=== PATIENT | female | born 1930 | race Caucasian/White ===

== ENCOUNTER 2022-01-15 02:11 | Emergency (ER) | payer SELFPAY ==
--- NOTE | 2022-01-15 03:14 | EDPHYS ---
Physician Documentation [facility] Name: Merissa Corado Age: 89 yrs Sex: Female : 1930 Arrival Date: 01/15/2022 Time: 02:13 Bed 6 Private MD: ED Physician Neto Torres HPI: 01/15 02:39 This 89 yrs old Female presents to ER via EMS with complaints of head injury. rn 02:39 The patient or guardian reports injury, swelling. The complaints affect the right side rn of the back of head. Context of injury: The problem was sustained at home, resulted from a fall. Onset: The symptoms/episode began/occurred just prior to arrival. Associated signs and symptoms: Loss of consciousness: This patient did not experience any loss of consciousness. Pertinent positives: headache, Pertinent negatives: neck pain, seizure, shortness of breath, vomiting, weakness in extremities. Severity of symptoms: At their worst the symptoms were moderate, in the emergency department the symptoms are unchanged. The patient has not experienced similar symptoms in the past. The patient has not recently seen a physician. EMS reports fall from standing, no LOC, at baseline mentally. + head injury. No other injury. No vomiting. No extremity injury. . Historical: - Home Meds: 02:18 aspirin 81 mg Delayed Release oral cap 2 caps once daily [Active]; hydrochlorothiazide vc1 12.5 mg Oral cap 1 cap once daily [Active]; Klor-Con M20 20 mEq Oral TbTQ 1 tab once daily [Active]; levothyroxine 50 mcg cap 1 cap every am [Active]; meloxicam 7.5 mg oral tab 1 tab once daily [Active]; simvastatin 40 mg Oral tab 1 tab once daily [Active]; trazodone 50 mg Oral tab 1 tab at bedtime [Active]; - Family history:: not pertinent. - Hospitalizations: : No recent hospitalization is reported. ROS: 02:39 Constitutional: Negative for fever, chills, and weight loss, Eyes: Negative for injury, rn pain, redness, and discharge, Neck: Negative for injury, pain, and swelling, Cardiovascular: Negative for chest pain, palpitations, and edema, Respiratory: Negative for shortness of breath, cough, wheezing, and pleuritic chest pain, Abdomen/GI: Negative for abdominal pain, nausea, vomiting, diarrhea, and constipation, Back: Negative for injury and pain, MS/Extremity: Negative for injury and deformity, Skin: + contusion and possible laceration to back of head Neuro: Negative for numbness, tingling, and seizure. Exam: 02:39 Constitutional: This is a well developed, well nourished patient who is awake, alert, rn and in no acute distress. Legs crossed, sitting up in bed giving thumbs up. Head/Face: Normocephalic, + dry blood on scalp and in hair, + right posterior scalp contusion and hematoma, no active bleeding, stellate superficial laceration to right posterior parietal scalp Eyes: Periorbital areas with no swelling, redness, or edema. Neck: Trachea midline, no vertebral point tenderness. No Meningismus. Cardiovascular: Regular rate and rhythm . No pulse deficits. Respiratory: No increased work of breathing, no retractions or nasal flaring. Abdomen/GI: soft, non-tender Skin: Warm, dry MS/ Extremity: Pulses equal, no cyanosis. Neurovascular intact. Full, normal range of motion. Equal circumference. Neuro: Awake and alert, GCS 15, moves all 4 extremities without difficulty or pain Vital Signs: 02:16 BP 170 / 110; Pulse 80; Resp 18; Temp 96.6(A); Pulse Ox 94% on R/A; Pain 5/10; aa9 02:17 Temp 96.6(A); vc1 02:18 BP 179 / 92; Pulse 74; Resp 18; Pulse Ox 95% on R/A; oe 05:48 BP 156 / 75; Pulse Ox 92% on R/A; tw5 [place] Coma Score: 02:39 Eye Response: spontaneous(4). Verbal Response: oriented(5). Motor Response: obeys rn commands(6). Total: 15. 03:10 Eye Response: spontaneous(4). Verbal Response: oriented(5). Motor Response: obeys rn commands(6). Total: 15. Laceration: 03:10 Wound Repair of 4cm ( 1.6in ) subcutaneous laceration to right parietal area. Distal rn neuro/vascular/tendon intact. Wound prep: Extensive cleansing by nurse, Wound irrigation by nurse, Wound explored extensively. Skin closed with 6 35W [place] using staple gun. Patient tolerated well. MDM: 02:13 Patient medically screened. rn 03:10 Differential diagnosis: Contusion of Hematoma on Laceration of Intracranial bleed- rn Concussion cerebral contusion. Data reviewed: vital signs, nurses notes, radiologic studies, CT scan, and as a result, I will discharge patient. Counseling: I had a detailed discussion with the patient and/or guardian regarding: the historical points, exam findings, and any diagnostic results supporting the discharge/admit diagnosis, radiology results, the need for outpatient follow up, to return to the emergency department if symptoms worsen or persist or if there are any questions or concerns that arise at home. Response to treatment: the patient's symptoms have markedly improved after treatment, and as a result, I will discharge patient. Special discussion: Based on the patient's history, exam and DX evaluation, there is no indication for emergent intervention or inpatient TX. It is understood by the patient/guardian that if the SXs persist or worsen they need to return immediately for re-evaluation. I discussed with the patient/guardian in detail that at this point there is no indication for admission to the hospital. It is understood, however, that if the symptoms persist or worsen the patient needs to return immediately for re-evaluation. 01/15 02:14 Order name: CT Head Brain wo Cont rn Administered Medications: 03:16 Drug: Tylenol #3 (300 mg-30 mg) 1 tablet Route: PO; ximena 05:47 Follow up: Response: No adverse reaction; RASS: Alert and Calm (0) tw5 Disposition Summary: 01/15/22 03:13 Discharge Ordered Location: Home rn Problem: new rn Symptoms: have improved rn Condition: Stable rn Diagnosis - Unspecified injury of head, initial encounter rn - Laceration without foreign body of scalp rn Followup: rn - With: Private Physician - When: As needed - Reason: Recheck today's complaints, Re-evaluation by your physician Discharge Instructions: - Discharge Summary Sheet rn - Head Injury, Adult rn - Hematoma rn - Laceration Care, Adult rn Forms: - Medication Reconciliation Form rn - Thank You Letter rn - Antibiotic internal communications manager - Prescription Opioid Use rn Signatures: Dispatcher [employer] EDMS Shabana Cox RN RN kl Nieto, Roman, MD MD rn Calcote, Vanessa, RN RN Neeru Ward tw5 Corrections: (The following items were deleted from the chart) 03:11 02:39 Constitutional: This is a well developed, well nourished patient who is awake, rn alert, and in no acute distress. Legs crossed, sitting up in bed giving thumbs up. Head/Face: Normocephalic, + dry blood on scalp and in hair, + right posterior scalp contusion and hematoma, no active bleeding, difficult to appreciate laceration at this time Eyes: Periorbital areas with no swelling, redness, or edema. Cardiovascular: Regular rate and rhythm . No pulse deficits. Respiratory: No increased work of breathing, no retractions or nasal flaring. Abdomen/GI: soft, non-tender Skin: Warm, dry MS/ Extremity: Pulses equal, no cyanosis. Neurovascular intact. Full, normal range of motion. Equal circumference. Neuro: Awake and alert, GCS 15, moves all 4 extremities without difficulty or pain rn 03:11 02:39 Constitutional: This is a well developed, well nourished patient who is awake, rn alert, and in no acute distress. Legs crossed, sitting up in bed giving thumbs up. Head/Face: Normocephalic, + dry blood on scalp and in hair, + right posterior scalp contusion and hematoma, no active bleeding, stellate superficial laceration to right posterior parietal scalp Eyes: Periorbital areas with no swelling, redness, or edema. Cardiovascular: Regular rate and rhythm . No pulse deficits. Respiratory: No increased work of breathing, no retractions or nasal flaring. Abdomen/GI: soft, non-tender Skin: Warm, dry MS/ Extremity: Pulses equal, no cyanosis. Neurovascular intact. Full, normal range of motion. Equal circumference. Neuro: Awake and alert, GCS 15, moves all 4 extremities without difficulty or pain rn
--- NOTE | 2022-01-15 03:14 | ER ---
Nurse's Notes [facility] Name: Merissa Corado Age: 89 yrs Sex: Female : 1930 Arrival Date: 01/15/2022 Time: 02:13 Bed 6 Private MD: Diagnosis: Unspecified injury of head, initial encounter;Laceration without foreign body of scalp Presentation: 01/15 02:16 Chief complaint: EMS states: EMS toned out for pt at [facility], found on the floor aa9 with blood on the floor. Pt fell, suffered a 2-3 cm laceration to the posterior head at 0130. No loss of consciousness seen. pt is nonverbal, gives thumbs up or thumbs down for responses. Initial Sepsis Screen: Does the patient meet any 2 criteria? Systolic BP < 90 mmHg. Altered Mental Status. Does the patient have a suspected source of infection? No. Patient's initial sepsis screen is negative. Risk Assessment: Do you want to hurt yourself or someone else? Patient reports no desire to harm self or others. Onset of symptoms was January 15, 2022 at 01:30. Care prior to arrival: Bleeding of injury controlled. Injury dressed. Mechanism of Injury: Fall. Transition of care: patient was received from another setting of care (long-term care facility), [facility]. 02:16 Method Of Arrival: EMS: [facility] aa9 02:16 Acuity: IRA 2 aa9 Triage Assessment: 02:16 General: Appears in no apparent distress. Behavior is calm, cooperative. Pain:. aa9 Historical: - Home Meds: 02:18 aspirin 81 mg Delayed Release oral cap 2 caps once daily [Active]; hydrochlorothiazide vc1 12.5 mg Oral cap 1 cap once daily [Active]; Klor-Con M20 20 mEq Oral TbTQ 1 tab once daily [Active]; levothyroxine 50 mcg cap 1 cap every am [Active]; meloxicam 7.5 mg oral tab 1 tab once daily [Active]; simvastatin 40 mg Oral tab 1 tab once daily [Active]; trazodone 50 mg Oral tab 1 tab at bedtime [Active]; - Family history:: not pertinent. - Hospitalizations: : No recent hospitalization is reported. Screenin:24 Abuse screen: Denies threats or abuse. Denies injuries from another. Nutritional aa9 screening: No deficits noted. 03:09 Fall Risk Fall in past 12 months (25 points). tw5 03:16 Tuberculosis screening: No symptoms or risk factors identified. kl Assessment: 02:24 General: see triage. aa9 03:09 Neuro: Level of Consciousness is awake, alert, obeys commands, Oriented to. tw5 Respiratory: Airway. Derm: Wound noted right parietal area Wound is moderating bleeding. Y shaped laceration noted. 04:53 General: Family is refusing to seed cone picker patient. [facility] will come seed cone picker the tw5 patient at 0800. 05:47 Reassessment: Patient states feeling better. Patient states symptoms have improved. tw5 General: Patient wanted to know if it was okay for her to sleep. Patient reassured that she can rest.. Vital Signs: 02:16 BP 170 / 110; Pulse 80; Resp 18; Temp 96.6(A); Pulse Ox 94% on R/A; Pain 5/10; aa9 02:17 Temp 96.6(A); vc1 02:18 BP 179 / 92; Pulse 74; Resp 18; Pulse Ox 95% on R/A; oe 05:48 BP 156 / 75; Pulse Ox 92% on R/A; tw5 [place] Coma Score: 02:39 Eye Response: spontaneous(4). Verbal Response: oriented(5). Motor Response: obeys rn commands(6). Total: 15. 03:10 Eye Response: spontaneous(4). Verbal Response: oriented(5). Motor Response: obeys rn commands(6). Total: 15. ED Course: 02:13 Patient arrived in ED. rn 02:13 Neto Torres MD is Attending Physician. rn 02:16 Arm band placed on. Bandage applied. aa9 02:22 Triage completed. aa9 02:32 CT Head Brain wo Cont In Process Unspecified. EDMS 03:09 Neeru Rose is Primary Nurse. tw5 03:09 Placed in gown. Door closed. Noise minimized. Moved to private room. Warm blanket given.tw5 03:09 Assist provider with laceration repair on back of head that was between 2.6 to 7.5 cm tw5 using quin. Set up tray. Performed by Neeru Rose Patient tolerated well. Music therapy provided as comfort measure. Patient did not have IV access during this emergency room visit. 03:11 Wound care: to laceration was irrigated with normal saline. tw5 05:47 Assisted with bedpan. Repositioned patient. Cleaned of incontinence. tw5 Administered Medications: 03:16 Drug: Tylenol #3 (300 mg-30 mg) 1 tablet Route: PO; 05:47 Follow up: Response: No adverse reaction; RASS: Alert and Calm (0) Medication: 03:09 VIS not applicable for this client. tw5 Outcome: 03:13 Discharge ordered by . rn 03:27 Discharged to long-term. Report called to [facility] 03:27 Condition: Shmuel camargo A- [phone] 08:19 Discharge instructions given to patient, Instructed on discharge instructions, follow ss up and referral plans. wound care, Demonstrated understanding of instructions, follow-up care. 08:19 Patient left the ED. ss Signatures: Dispatcher [employer] EDMS Shabana Cox RN Neto Guerra MD MD rn Smirch, Shelby, RN RN Albert Finney Tiffany tw5 Jen Galan RN RN vc1 Corina Marmolejo RN RN aa9 Corrections: (The following items were deleted from the chart) 02:30 02:16 BP 170 / 110; Pulse 80bpm; Resp 18bpm; Pulse Ox 94% RA; Temp 96.6F Axillary; aa9 aa9
[2022-01-15] MEDS ORDERED: CODEINE 30MG/APAP 300MG TAB ONE (03:20)
[2022-01-15 08:26] VITALS: TEMP 96.6
[2022-01-15 08:38] VITALS: BP 156/75; O2SAT 92
--- NOTE | 2022-01-15 11:41 | RAD REPORT ---
EXAM DESCRIPTION: CT head without IV contrast CLINICAL HISTORY: 89 years Female fall, posterior head injury TECHNIQUE: Multiple axial CT images of the brain were performed followed by sagittal and coronal rec onstructed images. The CT study is performed according to ALARA (as low as reasonably achievable) or ALARA/IMAGE GENTLY, with automatic adjustment of mA and/or kV according to patient size. Performed on: 01/15/2022 at 2:24 AM COMPARISON: 11/22/2017. FINDINGS: Brain: There is no evidence of mass, acute mass effect or midline shift. There are no acut e extra-axial fluid collections. There is no evidence of acute intracranial hemorrhage. The cerebra l sulci and ventricles are prominent consistent with mild cerebral volume loss. There are scattered a reas of decreased attenuation within the subcortical and periventricular white matter most likely due to mild chronic microangiopathy. Paranasal Sinuses and Mastoids: There is no significant mucosal thickening of the paranasal sinuses. There is partial opacification of the mastoid air cells bilaterally. Orbits: The orbital contents are grossly unremarkable. Bones: No acute osseous abnormalities are identified. Soft Tissues: There is right parietal scalp soft tissue swelling and hematoma. IMPRESSION: 1. No evidence of acute intracranial pathology. 2. Mild cerebral volume loss with findings compatible with chronic microangiopathy. 3. Right parietal scalp soft tissue swelling and hematoma. 4. Partial opacification of the mastoid air cells bilaterally. Electronically signed by: Gina Young DO 01/15/2022 2:49 AM CDT Due to temporary technical issues with the PACS/Fluency reporting system, reports are being signed by the in house radiologists without review as a courtesy to insure prompt reporting. The interpreting radiologist is fully responsible for the content of the report.
== END 2022-01-15 08:19 | disposition home or self-care (01) ==
LOC: ER 02:11
PROC: 0JQ00ZZ Repair Scalp Subcutaneous Tissue and Fascia, Open Approach (ICD-10-PCS; principal; 2022-01-15)
DX: S01.01XA Laceration without foreign body of scalp, initial encounter (principal); S09.90XA Unspecified injury of head, initial encounter; Z79.82 Long term (current) use of aspirin
CPT/HCPCS: 70450; 99284